=== PATIENT | male | born 1995 | race Caucasian/White ===

== ENCOUNTER 2018-04-06 18:08 | Emergency (ER) | payer OTHER ==
[2018-04-06] MEDS: DIPHENHYDRAMINE 50 MG INJ IM (20:35)
[2018-04-06] MEDS: ONDANSETRON (ODT) 4 MG TAB ODT (20:35)
[2018-04-07] MEDS: ONDANSETRON 4 MG INJ IM (05:10)
== END 2018-04-07 05:13 | disposition home or self-care (01) ==
LOC: E/R 04-07 05:13
DX: F10.920 Alcohol use, unspecified with intoxication, uncomplicated (principal); R40.2252 Coma scale, best verbal response, oriented, at arrival to emergency department; R40.2362 Coma scale, best motor response, obeys commands, at arrival to emergency department; R40.2342 Coma scale, best motor response, flexion withdrawal, at arrival to emergency department
CPT/HCPCS: 96372; 99284-25

== ENCOUNTER 2018-08-27 10:38 | Observation (INO) | payer OTHER ==
[2018-08-27] MEDS: HYDROmorphONE 1 MG/ML SYG IV ×3 (11:14→13:37)
[2018-08-27] MEDS: LORAZEPAM 2 MG INJ IV ×3 (11:14→18:31)
[2018-08-27] MEDS: ONDANSETRON 4 MG INJ IV ×3 (11:14→13:37)
[2018-08-27] MEDS: SOD CHLORIDE 0.9% 1,000 ML IV ×5 (11:14→20:30)
[2018-08-27 11:19] LABS: ADD MAN DIFF? NO
[2018-08-27 11:21] LABS: WHITE BLOOD COUNT 5.4 10^3/ul (4.8-10.8)
[2018-08-27 11:21] LABS: BASOPHILS % 0.4 % (0.0-2.0); HEMATOCRIT 39.1 % (42.0-52.0); HEMOGLOBIN 13.4 g/dl (14.0-18.0); LYMPHOCYTES # 0.9 10^3/ul (0.8-2.9); LYMPHOCYTES % 16.5 % (15.0-51.0); MEAN CORPUSCULAR HEMOGLOBIN 29.5 pg (29.0-33.0); MEAN CORPUSCULAR HGB CONC 34.3 g/dl (32.0-37.0); MEAN CORPUSCULAR VOLUME 86.1 fl (82.0-101.0); MEAN PLATELET VOLUME 9.3 fl (7.4-10.4); MONOCYTE # 0.4 10^3/ul (0.3-0.9); MONOCYTES % 6.8 % (0.0-11.0); NEUTROPHIL # 4.1 10^3/ul (1.6-7.5); NEUTROPHILS % 75.9 % (39.0-77.0); PLATELET COUNT 145 10^3/UL (140-415); RED BLOOD COUNT 4.54 10^6/ul (4.70-6.10); RED CELL DISTRIBUTION WIDTH 13.2 % (11.5-14.5)
[2018-08-27 11:40] LABS: INR 0.89; PROTIME 12.1 Sec (11.9-14.9); PT RATIO 0.9
[2018-08-27 11:41] LABS: ALANINE AMINOTRANSFERASE 92 IU/L (13-69); ALBUMIN 4.8 g/dl (3.3-4.9); ALBUMIN/GLOBULIN RATIO 1.29; ALKALINE PHOSPHATASE 114 IU/L (42-121); ANION GAP 21 (5-13); ASPARTATE AMINO TRANSFERASE 224 IU/L (15-46); BILIRUBIN,INDIRECT 0.8 mg/dl (0-1.1); BILIRUBIN,TOTAL 0.8 mg/dl (0.2-1.3); BLOOD UREA NITROGEN 10 mg/dl (7-20); CALCIUM 10.3 mg/dl (8.4-10.2); CARBON DIOXIDE 25 mmol/L (21-31); CHLORIDE 92 mmol/L (97-110); CREATININE 0.59 mg/dl (0.61-1.24); Estimated GFR > 60 mL/min (>60); GLUCOSE 103 mg/dl (70-220); LIPASE 181 U/L (23-300); POTASSIUM 3.5 mmol/L (3.5-5.1); SODIUM 138 mmol/L (135-144); TOTAL PROTEIN 8.5 g/dl (6.1-8.1)
[2018-08-27] MEDS: SOD CHLORIDE 0.9% 100 ML (12:31)
[2018-08-27] MEDS: IOHEXOL 300MG/ML 150 ML BTL (12:33)
[2018-08-27] MEDS ORDERED: ACETAMINOPHEN 325 MG TAB PO ×2 (13:30→20:30)
[2018-08-27] MEDS ORDERED: ONDANSETRON 4 MG INJ IV ×2 (13:30→20:30)
[2018-08-27] MEDS: PANTOPRAZOLE IV 80 MG in SOD CHLORIDE 0.9% 100 ML IVPB (14:53)
[2018-08-27] MEDS: PANTOPRAZOLE IV 80 MG in SOD CHLORIDE 0.9% 100 ML IV (15:50)
[2018-08-27] MEDS: PANTOPRAZOLE 40 MG INJ IV (16:00)
[2018-08-27] MEDS: DEXTROSE 5%-0.45% NACL 500 ML IV (16:47)
[2018-08-27 19:54] LABS: TROPONIN-I < 0.012 ng/ml (0.000-0.120)
[2018-08-27] MEDS: CHLORDIAZEPOXIDE 25 MG CAP PO (21:07)
[2018-08-27] MEDS: morphine 2 MG INJ IV (21:08)
[2018-08-27] MEDS: MULTIVITAMINS 10 ML, THIAMINE 100 MG, FOLIC ACID 1 MG in SOD CHLORIDE 0.9% 1,000 ML IVPB (22:19)
[2018-08-27] MEDS: NITROGLYCERIN 2% 1 GM OINT PKT TD (22:19)
[2018-08-28] MEDS: LORAZEPAM 2 MG INJ IV ×2 (00:10→08:48)
[2018-08-28] MEDS: CHLORDIAZEPOXIDE 25 MG CAP PO ×2 (05:36→13:25)
[2018-08-28] MEDS: SOD CHLORIDE 0.9% 1,000 ML IV ×2 (05:36→12:30)
[2018-08-28] MEDS: NITROGLYCERIN 2% 1 GM OINT PKT TD ×2 (05:37→14:00)
[2018-08-28 07:07] LABS: TRIGLYCERIDES 58 mg/dl (0-149); TROPONIN-I < 0.012 ng/ml (0.000-0.120)
[2018-08-28 07:07] LABS: CHOLESTEROL 183 mg/dl (100-200)
[2018-08-28 07:19] LABS: CHOL/HDL RATIO 1.4 RATIO; HDL CHOLESTEROL 125 mg/dl (30-63); LDL CHOLESTEROL,CALCULATED 46 mg/dl
[2018-08-28] MEDS: MULTIVITAMINS 10 ML, THIAMINE 100 MG, FOLIC ACID 1 MG in SOD CHLORIDE 0.9% 1,000 ML IVPB (09:00)
== END 2018-08-28 15:05 | disposition home or self-care (01) ==
LOC: E/R 10:38 → 6WM 14:50
DX: F10.239 Alcohol dependence with withdrawal, unspecified (principal); F10.229 Alcohol dependence with intoxication, unspecified; R10.9 Unspecified abdominal pain
CPT/HCPCS: 36415; 71045; 74177; 76705; 80053; 80061; 83690; 84484; 85025; 85610; 85730; 93005; 96361; 96374; 96375; 96376; 99285-25; G0378

== ENCOUNTER 2018-08-31 12:11 | Emergency (ER) | payer OTHER ==
[2018-08-31 12:27] LABS: ADD MAN DIFF? NO
[2018-08-31 12:37] LABS: BASOPHILS % 0.8 % (0.0-2.0); EOSINOPHILS # 0.1 10^3/ul (0.0-0.5); EOSINOPHILS % 2.8 % (0.0-7.0); HEMATOCRIT 43.8 % (42.0-52.0); HEMOGLOBIN 14.7 g/dl (14.0-18.0); LYMPHOCYTES # 1.9 10^3/ul (0.8-2.9); MEAN CORPUSCULAR HEMOGLOBIN 29.8 pg (29.0-33.0); MEAN CORPUSCULAR HGB CONC 33.6 g/dl (32.0-37.0); MEAN CORPUSCULAR VOLUME 88.8 fl (82.0-101.0); MEAN PLATELET VOLUME 10.2 fl (7.4-10.4); MONOCYTE # 0.7 10^3/ul (0.3-0.9); MONOCYTES % 12.8 % (0.0-11.0); NEUTROPHIL # 2.3 10^3/ul (1.6-7.5); NEUTROPHILS % 44.6 % (39.0-77.0); PLATELET COUNT 124 10^3/UL (140-415); POSITIVE DIFF @See below; RED BLOOD COUNT 4.93 10^6/ul (4.70-6.10); RED CELL DISTRIBUTION WIDTH 13.5 % (11.5-14.5)
[2018-08-31 12:37] LABS: WHITE BLOOD COUNT 5.1 10^3/ul (4.8-10.8)
[2018-08-31] MEDS: LIDOCAINE/MYLANTA 40 ML BTL PO (12:37)
[2018-08-31] MEDS: SOD CHLORIDE 0.9% 1,000 ML IV (12:37)
[2018-08-31] MEDS: ONDANSETRON 4 MG INJ IV (12:37)
[2018-08-31] MEDS: FAMOTIDINE 20 MG INJ IV (12:37)
[2018-08-31 13:00] LABS: INR 0.85; PROTIME 11.7 Sec (11.9-14.9); PT RATIO 0.9
[2018-08-31 13:01] LABS: PARTIAL THROMBOPLASTIN TIME 27.5 Sec (23.0-35.0)
[2018-08-31 13:10] LABS: ALANINE AMINOTRANSFERASE 875 IU/L (13-69); ALBUMIN 4.8 g/dl (3.3-4.9); ALBUMIN/GLOBULIN RATIO 1.23; ALKALINE PHOSPHATASE 142 IU/L (42-121); ANION GAP 15 (5-13); BILIRUBIN,INDIRECT 0.2 mg/dl (0-1.1); BILIRUBIN,TOTAL 0.2 mg/dl (0.2-1.3); BLOOD UREA NITROGEN 4 mg/dl (7-20); CALCIUM 9.7 mg/dl (8.4-10.2); CARBON DIOXIDE 23 mmol/L (21-31); CHLORIDE 106 mmol/L (97-110); CREATININE 0.73 mg/dl (0.61-1.24); Estimated GFR > 60 mL/min (>60); GLUCOSE 105 mg/dl (70-220); LIPASE 134 U/L (23-300); POTASSIUM 3.8 mmol/L (3.5-5.1); SODIUM 144 mmol/L (135-144); TOTAL PROTEIN 8.7 g/dl (6.1-8.1)
[2018-08-31] MEDS: FOLIC ACID 1 MG TAB PO (13:17)
[2018-08-31] MEDS: THIAMINE 100 MG TAB PO (13:17)
[2018-08-31 14:46] LABS: ASPARTATE AMINO TRANSFERASE 1604 IU/L (15-46)
== END 2018-08-31 14:15 | disposition home or self-care (01) ==
LOC: E/R 12:11
DX: K29.20 Alcoholic gastritis without bleeding (principal); K70.10 Alcoholic hepatitis without ascites; F10.10 Alcohol abuse, uncomplicated; R40.2142 Coma scale, eyes open, spontaneous, at arrival to emergency department; R40.2362 Coma scale, best motor response, obeys commands, at arrival to emergency department; R40.2252 Coma scale, best verbal response, oriented, at arrival to emergency department
CPT/HCPCS: 36415; 80053; 83690; 85025; 85610; 85730; 96374; 96375; 99284-25

== ENCOUNTER 2018-09-10 11:36 | Emergency (ER) | payer OTHER ==
[2018-09-10] MEDS ORDERED: LORAZEPAM 2 MG INJ (11:43)
[2018-09-10] MEDS ORDERED: HALOPERIDOL 5 MG INJ (11:43)
[2018-09-10] MEDS: LORAZEPAM 2 MG INJ IM (11:50)
[2018-09-10] MEDS: HALOPERIDOL 5 MG INJ IM (11:51)
[2018-09-10 12:21] LABS: ADD MAN DIFF? NO
[2018-09-10 12:25] LABS: WHITE BLOOD COUNT 6.6 10^3/ul (4.8-10.8)
[2018-09-10 12:25] LABS: BASOPHIL # 0.1 10^3/ul (0.0-0.1); BASOPHILS % 1.2 % (0.0-2.0); EOSINOPHILS # 0.1 10^3/ul (0.0-0.5); EOSINOPHILS % 0.8 % (0.0-7.0); HEMATOCRIT 42.9 % (42.0-52.0); HEMOGLOBIN 13.9 g/dl (14.0-18.0); LYMPHOCYTES # 1.9 10^3/ul (0.8-2.9); LYMPHOCYTES % 28.1 % (15.0-51.0); MEAN CORPUSCULAR HEMOGLOBIN 29.8 pg (29.0-33.0); MEAN CORPUSCULAR HGB CONC 32.4 g/dl (32.0-37.0); MEAN CORPUSCULAR VOLUME 91.9 fl (82.0-101.0); MEAN PLATELET VOLUME 9.6 fl (7.4-10.4); MONOCYTE # 0.7 10^3/ul (0.3-0.9); MONOCYTES % 10.1 % (0.0-11.0); NEUTROPHIL # 3.9 10^3/ul (1.6-7.5); NEUTROPHILS % 59.2 % (39.0-77.0); PLATELET COUNT 282 10^3/UL (140-415); RED BLOOD COUNT 4.67 10^6/ul (4.70-6.10); RED CELL DISTRIBUTION WIDTH 14.1 % (11.5-14.5)
[2018-09-10 12:28] LABS: ADD UMIC NO; UR ASCORBIC ACID NEGATIVE (NEGATIVE); UR BILIRUBIN (Dip) NEGATIVE (NEGATIVE); UR BLOOD (Dip) NEGATIVE (NEGATIVE); UR CLARITY CLEAR (CLEAR); UR COLOR STRAW (YELLOW); UR GLUCOSE (Dip) NEGATIVE (NEGATIVE); UR KETONES (Dip) NEGATIVE (NEGATIVE); UR LEUKOCYTE ESTERASE (Dip) NEGATIVE Leu/ul (NEGATIVE); UR NITRITE (Dip) NEGATIVE (NEGATIVE); UR SPECIFIC GRAVITY (Dip) 1.003 (1.003-1.030); UR TOTAL PROTEIN (Dip) NEGATIVE (NEGATIVE); UR UROBILINOGEN (Dip) NEGATIVE (NEGATIVE)
[2018-09-10 12:45] LABS: ALANINE AMINOTRANSFERASE 734 IU/L (13-69); ALBUMIN 4.7 g/dl (3.3-4.9); ALBUMIN/GLOBULIN RATIO 1.27; ALKALINE PHOSPHATASE 168 IU/L (42-121); ANION GAP 17 (5-13); BILIRUBIN,INDIRECT 0.1 mg/dl (0-1.1); BILIRUBIN,TOTAL 0.1 mg/dl (0.2-1.3); BLOOD UREA NITROGEN 7 mg/dl (7-20); CALCIUM 9.5 mg/dl (8.4-10.2); CARBON DIOXIDE 19 mmol/L (21-31); CHLORIDE 109 mmol/L (97-110); CREATININE 0.59 mg/dl (0.61-1.24); Estimated GFR > 60 mL/min (>60); GLUCOSE 130 mg/dl (70-220); POTASSIUM 4.1 mmol/L (3.5-5.1); SODIUM 145 mmol/L (135-144); TOTAL PROTEIN 8.4 g/dl (6.1-8.1)
[2018-09-10 12:46] LABS: ACETAMINOPHEN < 10.0 ug/ml (10.0-30.0); SALICYLATE < 1.0 mg/dl (5.0-30.0)
[2018-09-10 12:54] LABS: ASPARTATE AMINO TRANSFERASE 1237 IU/L (15-46)
[2018-09-10 13:04] LABS: AMPHETAMINE/METHAMPHETAMINE NEGATIVE (NEGATIVE); BARBITURATES NEGATIVE (NEGATIVE); BENZODIAZEPINES NEGATIVE (NEGATIVE); CANNABINOIDS NEGATIVE (NEGATIVE); COCAINE NEGATIVE (NEGATIVE); OPIATES NEGATIVE (NEGATIVE)
== END 2018-09-10 22:36 | disposition home or self-care (01) ==
LOC: E/R 11:36
DX: F10.921 Alcohol use, unspecified with intoxication delirium (principal); R94.5 Abnormal results of liver function studies; R40.2132 Coma scale, eyes open, to sound, at arrival to emergency department; R40.2252 Coma scale, best verbal response, oriented, at arrival to emergency department; R40.2362 Coma scale, best motor response, obeys commands, at arrival to emergency department
CPT/HCPCS: 36415; 70450; 80053; 80307; 81003; 85025; 96372; 99291-25

== ENCOUNTER 2018-11-21 13:19 | Emergency (ER) | payer OTHER ==
[2018-11-21] MEDS: LORAZEPAM 1 MG TAB PO (16:40)
[2018-11-21] MEDS: ACETAMINOPHEN 500 MG TAB PO (16:40)
[2018-11-21] MEDS: SOD CHLORIDE 0.9% 1,000 ML IV (16:46)
== END 2018-11-21 18:10 | disposition home or self-care (01) ==
LOC: E/R 13:19
DX: S00.83XA Contusion of other part of head, initial encounter (principal); R07.9 Chest pain, unspecified; Y04.0XXA Assault by unarmed brawl or fight, initial encounter
CPT/HCPCS: 36415; 70450; 71045; 93005; 99285-25

== ENCOUNTER 2019-01-25 22:05 | Emergency (ER) | payer OTHER ==
[2019-01-25] MEDS: LIDOCAINE/MYLANTA 40 ML BTL PO (22:33)
[2019-01-25] MEDS: LORAZEPAM 1 MG TAB PO (22:33)
== END 2019-01-26 00:10 | disposition home or self-care (01) ==
LOC: E/R 01-26 00:10
DX: R07.9 Chest pain, unspecified (principal); F10.920 Alcohol use, unspecified with intoxication, uncomplicated
CPT/HCPCS: 82962; 93005; 99283-25

== ENCOUNTER 2019-02-14 19:10 | Emergency (ER) | payer OTHER | END 2019-02-14 20:12 | disposition home or self-care (01) | LOC: E/R 19:10 | DX: F10.920 Alcohol use, unspecified with intoxication, uncomplicated (principal) | CPT/HCPCS: 99282; Z7502 ==

== ENCOUNTER 2019-02-16 18:58 | Emergency (ER) | payer SELFPAY, OTHER | END 2019-02-16 20:30 | disposition left against medical advice (07) | LOC: E/R 18:58 | DX: Z53.21 Procedure and treatment not carried out due to patient leaving prior to being seen by health care provider (principal) ==